=== PATIENT | male | born 1990 | race American Indian/Alaskan Native ===

== ENCOUNTER 2018-07-14 09:52 | Emergency (ER) | payer SELFPAY ==
[2018-07-14 10:13] VITALS: BP 131/84
[2018-07-14] MEDS ORDERED: XYLOCAINE 1% MPF 5 mL INFILTRATI ONE (11:18)
--- NOTE | 2018-07-14 11:23 | Emergency Department Report ---
ED Laceration HPI - HPI Chief Complaint: Laceration/Recheck/Suture Stated Complaint: LEFT HAND INJURY Occurred When: Today Location: Upper Extremity (left hand) Severity: moderate Tetanus Status: Up to Date Laceration Symptoms: Yes Pain, No Foreign Body Sensation, No Numbness, No Weakness Other History: This 28-year-old male that presents with a laceration to left anterior hand. Patient states he accidentally stabbed his hand while attempting to remove the pit of an avocado with a steak knife 2 hours ago. Patient states he wrapped handing gauze and came in for further evaluation. States he is able to move all fingers. States he was seems to take the shot 2-3 years ago. He denies numbness or tingling or swelling. ED Review of Systems ROS: Stated complaint: LEFT HAND INJURY Other details as noted in HPI Constitutional: denies: chills, fever Respiratory: denies: cough, shortness of breath, wheezing Cardiovascular: denies: chest pain, palpitations Gastrointestinal: denies: abdominal pain, nausea, diarrhea Skin: lesions (laceration to anterior left hand). denies: rash Neurological: denies: headache, weakness, paresthesias Psychiatric: denies: anxiety, depression ED Past Medical Hx - Past Medical History Previous Medical History?: No - Surgical History Past Surgical History?: No - Social History Smoking Status: Current Every Day Smoker Substance Use Type: None - Medications Home Medications: Home Medications Medication Instructions Recorded Confirmed Last Taken Type Ibuprofen [Motrin 600 MG tab] 600 mg PO Q8H PRN #15 tablet 07/14/18 Unknown Rx Sulfamethoxazole/Trimethoprim 1 each PO BID #14 tablet 07/14/18 Unknown Rx [Bactrim DS TAB] Laceration Physical Exam - Exam General: Vital signs noted. No distress. Alert and acting appropriately. Wound Length (cm): 1 Laceration Location: Upper Extremity (1 cm linear laceration into dermis to left palm above 3rd phalanx, tenderness, no swelling, serousanginous drainage, no visualized tendon or nerves, no surrounding cellulitis.) Laceration Exam: Yes Normal Distal CMS, No Foreign Body, No Exposed Tendon, Vessel, or Nerve, No Tendon Injury ED Course Vital Signs 07/14/18 10:12 Temperature 97.8 F Pulse Rate 85 Respiratory 16 Rate Blood Pressure 131/84 O2 Sat by Pulse 95 Oximetry - Laceration /Wound Repair Left Anterior Proximal Palm Hand Wound Location: upper extremity (left hand) Wound Length (cm): 1 Wound's Depth, Shape: into muscle, linear Wound Explored: clean Irrigated w/ Saline (ccs): 5 Betadine Prep?: Yes Anesthesia: 1% Lidocaine Volume Anesthetic (ccs): 1 Wound Repaired With: sutures Suture Size/Type: 5:0 Number of Sutures: 2 Layer Closure?: No Sterile Dressing Applied?: Yes ED Medical Decision Making - Medical Decision Making This is a 28 y.o. male presents with a laceration to left palm, 2 hours SOD [employer]. Patient examined by me. Patient is non-toxic appearing and stable. Laceration closed with 2 sutures, review note. Discharged home for outpatient treatment with bactrim and ibuprofen. Discussed ER care plan with patient. Patient agreed with plan. F/U with PCP. Critical care attestation.: If time is entered above; I have spent that time in minutes in the direct care of this critically ill patient, excluding procedure time. ED Disposition Clinical Impression: Laceration of hand without complication, excluding fingers Qualifiers: Encounter type: initial encounter Laterality: left Qualified Code(s): S61.412A - Laceration without foreign body of left hand, initial encounter Disposition: TO HOME OR SELFCARE Is pt being admited?: No Does the pt Need Aspirin: No Condition: Stable Instructions: Suture Care (ED), Laceration (ED) Additional Instructions: Take antibiotics as prescribed for the full course. Keep wound dry and clean for 48 hours. Avoid putting to much tension on wound site. Prop arm up on pillows to decrease swelling. Follow up with Primary Care Provider in 2-3 days. Have sutures removed in 7-10 days by primary care provider or in ER. Return to ER if red, swollen, foul discharge, or fever. Prescriptions: Sulfamethoxazole/Trimethoprim [Bactrim DS TAB] 1 each PO BID #14 tablet Ibuprofen [Motrin 600 MG tab] 600 mg PO Q8H PRN #15 tablet PRN Reason: Pain Referrals: [facility] [Outside] - 3-5 Days [facility] [Outside] - 3-5 Days [facility] [Outside] - 3-5 Days BERTHA MORTON MD [Staff Physician] - 3-5 Days Forms: Work/School Release Form(ED) Time of Disposition: 12:01
[2018-07-14] MEDS ORDERED: ULTRAM PO ONE (11:42)
[2018-07-14] MEDS ORDERED: ULTRAM ONE (11:43)
== END 2018-07-14 12:15 | disposition home or self-care (01) ==
LOC: ED 09:52
DX: S61.412A Laceration without foreign body of left hand, initial encounter (principal); F17.200 Nicotine dependence, unspecified, uncomplicated; W26.0XXA Contact with knife, initial encounter; Y93.89 Activity, other specified; Y92.89 Other specified places as the place of occurrence of the external cause; Y99.8 Other external cause status